=== PATIENT | male | born 1960 | race Caucasian/White ===

== ENCOUNTER 2017-12-14 18:33 | Inpatient (IN) | payer OTHER ==
[~2017-12-14] VITALS: Ht 182.9 cm; Wt 84.4 kg
[2017-12-14 18:35] VITALS: BP 215/122
[2017-12-14 18:49] LABS: ABSOLUTE BASOPHILS 0.1 thou/uL (0.0-0.2); ABSOLUTE EOSINOPHILS 0.1 thou/uL (0.0-0.7); ABSOLUTE LYMPHOCYTES 1.6 thou/uL (0.8-5.3); ABSOLUTE MONOCYTES 1.2 thou/uL (0.0-1.2); ABSOLUTE NEUTROPHILS 8.3 thou/uL (1.6-8.1); BASOPHILS 1.1 %; EOSINOPHILS 0.6 %; HEMATOCRIT 46.2 % (42.0-52.0); HEMOGLOBIN 15.4 gm/dL (14.0-18.0); LYMPHOCYTES 14.2 %; MCH 32.7 pg (26.0-34.0); MCHC 33.4 g/dL (28.0-37.0); MONOCYTES 10.3 %; MPV 9.3 fl. (7.2-11.1); NUCLEATED RBCS 0 /100WBC; PLATELET COUNT* 176 thou/uL (150-400); POLYS 73.8 %; RBC 4.71 mil/uL (4.50-6.00); RDW-CV 15.3 % (10.5-14.5); WBC 11.2 thou/uL (4.0-11.0)
[2017-12-14 18:56] LABS: CALCIUM 8.9 mg/dL (8.5-10.1); CREATININE 1.5 mg/dL (0.6-1.3); POTASSIUM 3.9 mmol/L (3.5-5.1)
[2017-12-14 19:01] LABS: APTT 27.8 Seconds (25.0-31.3); INR 1.1; PROTIME 10.9 Seconds (9.20-11.50)
[2017-12-14 19:06] LABS: ALBUMIN 3.9 g/dL (3.4-5.0); TOTAL BILIRUBIN 0.8 mg/dL (<0.1-1.0); TOTAL PROTEIN 7.8 g/dL (6.4-8.2); TROPONIN-I LEVEL 0.06 ng/mL (<0.06)
[2017-12-14 19:31] LABS: AMP/METHAMP Negative (Negative); BARBITURATES Negative (Negative); BENZODIAZEPINES Negative (Negative); COCAINE Negative (Negative); METHADONE Negative (Negative); OPIATES Negative (Negative); PCP Negative (Negative); THC Negative (Negative)
[2017-12-14 19:58] LABS: BE -2.5 mmol/L (-2 to +3); PCO2 32.7 mmHg (35.0-45.0); pH 7.425 (7.340-7.450)
[2017-12-14 20:00] LABS: PO2 < 23.5 mmHg (75.0-100.0)
[2017-12-14 21:03] VITALS: BP 151/86
[2017-12-14 21:33] VITALS: BP 162/95
[2017-12-15 00:38] VITALS: BP 145/93
[2017-12-15 04:00] VITALS: BP 137/89
[2017-12-15 08:00] VITALS: BP 165/97
--- NOTE | 2017-12-15 11:45 | EKG ---
[place] [address] ELECTROCARDIOGRAM REPORT Name: JUSTEN GARCIA Room: [place] [address] ADM IN [facility].#: [id number] Admission: 12/14/17 Attend Phys: Thanh Sue Discharge: Date of : 56 Report #: [id number] THIS REPORT FOR: //name// [facility] ED Test Date: 2017-12-14 Test Time: 18:37:10 Pat Name: JUSTEN WHITEW Department: Room: [facility] Gender: Assembler Trim: Thanh OTERO : 1960 Requested By: Diogo Casas Order Number: [id number] MD: Alfredo Bright Measurements Intervals [place] Rate: 136 P: 27 NC: 131 QRS: -22 QRSD: 74 T: 109 QT: 291 QTc: 438 Interpretive Statements Sinus tachycardia Left atrial enlargement RSR' in V1 or V2, probably normal variant LVH with secondary repolarization abnormality Baseline wander in lead(s) V1,V2,V3,V4,V5,V6 No previous ECG available for comparison Electronically Signed On 12-15-2017 11:44:43 FUSING MACHINE FEEDER by Alfredo Bright [email or web address] <ELECTRONICALLY SIGNED> By: Alfredo Bright MD, [facility] 12/15/17 1144 1837 1837 Alfredo Bright MD, [facility] /EPI
[2017-12-15 12:00] VITALS: BP 167/88
--- NOTE | 2017-12-15 13:49 | 2DMMODE ---
[place] [address] 2 D/M-MODE ECHOCARDIOGRAM Name: LAITH GARCIA Room: [place] [address] ADM IN .R.#: [id number] Admission: 12/14/17 Attend Phys: Laith Singh Discharge: Date of : 56 Date of Service: 12/15/17 1349 Report #: [id number] THIS REPORT FOR: //name// APPROVED REPORT Study performed: 12/15/2017 10:55:59 EXAM: Comprehensive 2D, Doppler, and color-flow Echocardiogram Patient Location: Bedside BSA: 2.07 HR: 80 bpm BP: 137/89 mmHg Other Information Study Quality: Good Indications Chest Pain Hypertension/HDD 2D Dimensions IVSd: 15.70 (7-11mm) LVOT Diam: 20.42 (18-24mm) LVDd: 58.25 mm PWd: 15.44 (7-11mm) Ascending Ao: 35.52 (22-36mm) LVDs: 47.28 (25-40mm) Aortic Root: 28.27 mm Volumes Left Atrial Volume (Systole) LA ESV Index: 41.60 mL/m2 Aortic Valve AoV Peak [place].: 1.74 m/s AO Peak Gr.: 12.16 mmHg LVOT Max P.14 mmHg AO Mean Gr.: 6.54 mmHg LVOT Mean P.89 mmHg LVOT Max V: 1.02 m/s AO V2 VTI: 29.58 cm LVOT Mean V: 0.63 m/s EJ (VTI): 2.35 cm2 LVOT V1 VTI: 21.27 cm AI [place]: 3.84 m/s2 AI PHT: 418.16 ms Mitral Valve E/A Ratio: 2.16 MV Decel. Time: 190.62 [place] [address] 2 D/M-MODE ECHOCARDIOGRAM Name: LAITH GARCIA Room: [address] IN [facility]#: [id number] Admission: 12/14/17 Attend Phys: Laith Singh Discharge: Date of : 56 Date of Service: 12/15/17 1349 Report #: [id number] MV E Max [place].: 1.22 m/s MV PHT: 55.28 ms MVA (PHT): 3.98 cm2 TDI E/Lateral E': 13.56 E/Medial E': 17.43 Medial E' [place].: 0.07 m/s Lateral E' [place].: 0.09 m/s Pulmonary Valve PV Peak [place].: 0.97 m/s PV Peak Gr.: 3.75 mmHg Tricuspid Valve RAP Estimate: 10.00 mmHg TR Peak Gr.: 47.74 mmHg RVSP: 57.74 mmHg PA Pressure: 57.74 mmHg Left Ventricle Left ventricle is dilated. There is global hypokinesis of the left ventricle. Mild to moderate concentric left ventricular hypertrophy. Left ventricular systolic function is moderately decreased. LVEF is 35-40%. Right Ventricle The right ventricle is normal size. The right ventricular systolic function is normal. Atria Left atrium is moderately dilated. The right atrium size is normal. Aortic Valve The aortic valve is normal in structure. Moderate aortic regurgitation. There is no aortic valvular stenosis. Mitral Valve Mitral valve leaflets are mildly thickened. Mild to moderate mitral regurgitation. No evidence of mitral valve stenosis. Tricuspid Valve The tricuspid valve is normal in structure. Mild tricuspid regurgitation. estimate pa pressure 40 mm Hg Pulmonic Valve The pulmonary valve is normal in structure. Trace [place] [address] 2 D/M-MODE ECHOCARDIOGRAM Name: LAITH GARCIA Room: [address] IN [facility]#: [id number] Admission: 12/14/17 Attend Phys: Laith Singh Discharge: Date of : 56 Date of Service: 12/15/17 1349 Report #: [id number] [place] The aortic root is normal in size. IVC is dilated. Pericardium There is no pericardial effusion. <Conclusion> Left atrium is moderately dilated. Moderate aortic regurgitation. Mild to moderate mitral regurgitation. Mild tricuspid regurgitation. estimate pa pressure 40 mm Hg Mild to moderate concentric left ventricular hypertrophy. LVEF is 35-40%. <ELECTRONICALLY SIGNED> By: Alfredo Bright MD, FACC 12/15/171348 48 48 Alfredo Bright MD, FACC /INF
[2017-12-15 16:00] VITALS: BP 184/107
[2017-12-15 20:00] VITALS: BP 166/86
[2017-12-16] VITALS: BP 151/70
[2017-12-16 04:00] VITALS: BP 160/78
[2017-12-16 05:34] LABS: HEMATOCRIT 41.9 % (42.0-52.0); MCHC 33.4 g/dL (28.0-37.0); MCV 98.7 fL (80.0-100.0); MPV 10.2 fl. (7.2-11.1); RBC 4.24 mil/uL (4.50-6.00); WBC 9.1 thou/uL (4.0-11.0)
[2017-12-16 05:50] LABS: CALCIUM 8.1 mg/dL (8.5-10.1); CREATININE 1.1 mg/dL (0.6-1.3); MAGNESIUM 1.8 mg/dL (1.8-2.4); POTASSIUM 3.9 mmol/L (3.5-5.1); TOTAL BILIRUBIN 0.8 mg/dL (<0.1-1.0); TOTAL PROTEIN 6.2 g/dL (6.4-8.2)
[2017-12-16 08:00] VITALS: BP 159/98
[2017-12-16 09:29] VITALS: BP 159/98
[2017-12-16] MEDS ORDERED: ASPIR 8181 MG PO (10:01)
[2017-12-16] MEDS ORDERED: LEVAQUIN 500 M500 M2 PO (10:01)
[2017-12-16] MEDS ORDERED: PRINIVIL5 MG PO (10:01)
--- NOTE | 2017-12-16 15:03 | CON ---
[address] [address] CONSULTATION Name: LAITH GARCIA Room: [address] IN .R.#: [id number] Admission: 12/14/17 Attend Phys: Thanh Sue Discharge: 12/16/17 Date of : 56 Report #: [id number] THIS REPORT FOR: //name// CC: MARY physician/PCP Laith Singh DATE OF SERVICE: 12/15/2017 HISTORY OF PRESENT ILLNESS: The patient is a 57-year-old single white male who I was asked to see in the hospital today after he was noted to have an abnormal troponin. The history is obtained from the patient. There are no old records available. The patient has a history of morbid obesity, previously weighing almost 300 pounds. However, he now weighs approximately 174 pounds. He stays fairly active. He has had no history of heart disease. He does smoke one half pack of cigarettes a day. He previously had high blood pressure, was on medications, but after he lost weight he no longer has high blood pressure. The patient states he was doing well recently, although he has had some heaviness in his chest. Yesterday afternoon, he felt short of breath and diaphoretic. He has been coughing. Because of shortness of breath he finally came to the Emergency Room. He was found to have evidence of pneumonia. His troponin is borderline elevated. I was asked to see him for further evaluation and treatment. He did note some heaviness in his chest and left arm numbness. The heaviness has been there for a week. He also notes occasional fluttering in his chest, but no syncope. He has had no leg pain or edema. Denied any fever. He has had a cough. PAST MEDICAL HISTORY: He has had an appendectomy. No longer has high blood pressure, diabetes, hyperlipidemia. MEDICATIONS: He is currently on no medications. ALLERGIES: He has no known drug allergies and unfortunately has no medical insurance. FAMILY HISTORY: His father had coronary artery bypass surgery. Sister had coronary stents. SOCIAL HISTORY: He is , lives here in [place]. He works cleaning swimming pools. He currently is a homosexual. He smokes 1-1/2 pack of cigarettes a day, has 2 drinks of alcohol a day. No history of alcohol abuse. REVIEW OF SYSTEMS: He has apparently been tested for HIV negative in the past. He has had no history of stroke. He does have a chronic cough. He was diagnosed with hepatitis C in the past, was never treated. No history of peptic ulcer disease or kidney stone. No cancer, [place] [address] CONSULTATION Name: LAITH GARCIA Room: [address] IN ..#: [id number] Admission: 12/14/17 Attend Phys: Thanh Sue Discharge: 12/16/17 Date of : 56 Report #: [id number] PHYSICAL EXAMINATION: GENERAL: Middle-aged male who appeared in no distress. VITAL SIGNS: On admission, he had a blood pressure of 200/100. He was afebrile, pulse was 100. HEENT: He is anicteric. Conjunctivae pink. Mucous membranes moist. NECK: Veins not distended. No carotid bruits. Neck supple. CHEST: Clear to auscultation. CARDIAC: Regular rate and rhythm without rub. ABDOMEN: Soft, nontender. EXTREMITIES: Had no edema. Posterior tibial pulse 3+ bilaterally. SKIN: Warm, dry. NEUROLOGIC: Nonfocal. DIAGNOSTIC DATA: His ECG on admission showed a sinus rhythm, left ventricular hypertrophy, repolarization changes. His workup so far in the Emergency Room, he had portable chest x-ray that showed normal heart size with patchy bilateral infiltrates consistent with pneumonitis. LABORATORY DATA: Sodium 138, BUN 28, creatinine 1.5, glucose 122, SGOT 48, SGPT 42. Troponin 0.09. BNP 3194. His white blood cell count 11.2, hemoglobin 15.4. IMPRESSION AND RECOMMENDATIONS: 1. Chest tightness. Atypical for angina. Suspect noncardiac. Would recommend an echocardiogram. 2. Hypertension. Previously on medications. At this time, I would recommend starting a beta marilee. 3. Pneumonia. 4. Tobacco abuse. 5. History of hepatitis C. 6. Chronic kidney disease. <ELECTRONICALLY SIGNED> By: Alfredo Bright MD, [facility] 12/16/17 1503 0837 [id number] Bright MD, FAC /nt
== END 2017-12-16 12:00 | disposition home or self-care (01) | DRG 682 ==
LOC: M.ERS 18:33 → M.2W 20:29 → M.TBA-ER 20:29 → M.2W 21:01
PROVIDERS: Emergency Medicine; Internal Medicine; Personal Emergency Response Attendant; ADMIT Internal Medicine
DX: N17.9 Acute kidney failure, unspecified (principal); J18.9 Pneumonia, unspecified organism; I42.9 Cardiomyopathy, unspecified; I16.0 Hypertensive urgency; F17.210 Nicotine dependence, cigarettes, uncomplicated; E66.01 Morbid (severe) obesity due to excess calories; Z68.25 Body mass index [BMI] 25.0-25.9, adult; N18.9 Chronic kidney disease, unspecified; I12.9 Hypertensive chronic kidney disease with stage 1 through stage 4 chronic kidney disease, or unspecified chronic kidney disease; R79.1 Abnormal coagulation profile; R74.8 Abnormal levels of other serum enzymes

== ENCOUNTER 2018-02-06 02:09 | Emergency (ER) | payer OTHER ==
[~2018-02-06] VITALS: Ht 182.9 cm; Wt 78.0 kg
[~2018-02-06 02:09] MED LIST: ASPIR 8181 MG PO; LEVAQUIN 500 M500 M2 PO; PRINIVIL5 MG PO
[2018-02-06 02:40] LABS: ABSOLUTE EOSINOPHILS 0.1 thou/uL (0.0-0.7); ABSOLUTE LYMPHOCYTES 1.7 thou/uL (0.8-5.3); ABSOLUTE MONOCYTES 1.1 thou/uL (0.0-1.2); BASOPHILS 0.5 %; EOSINOPHILS 1.1 %; HEMATOCRIT 45.1 % (42.0-52.0); HEMOGLOBIN 15.5 gm/dL (14.0-18.0); LYMPHOCYTES 21.9 %; MCH 32.8 pg (26.0-34.0); MCHC 34.5 g/dL (28.0-37.0); MCV 95.3 fL (80.0-100.0); MONOCYTES 13.6 %; MPV 8.8 fl. (7.2-11.1); NUCLEATED RBCS 0 /100WBC; PLATELET COUNT* 153 thou/uL (150-400); POLYS 62.9 %; RBC 4.73 mil/uL (4.50-6.00)
[2018-02-06 02:44] LABS: CALCIUM 8.7 mg/dL (8.5-10.1); CREATININE 1.1 mg/dL (0.6-1.3)
[2018-02-06 02:48] LABS: ALBUMIN 3.9 g/dL (3.4-5.0); POTASSIUM 2.9 mmol/L (3.5-5.1); TOTAL PROTEIN 7.5 g/dL (6.4-8.2)
[2018-02-06 07:45] VITALS: BP 114/74
== END 2018-02-06 07:45 | disposition home or self-care (01) ==
LOC: M.ERS 02:09
PROVIDERS: Personal Emergency Response Attendant
DX: S01.01XA Laceration without foreign body of scalp, initial encounter (principal); F10.129 Alcohol abuse with intoxication, unspecified; I10 Essential (primary) hypertension; Z90.49 Acquired absence of other specified parts of digestive tract; W19.XXXA Unspecified fall, initial encounter; Y93.89 Activity, other specified; Y92.89 Other specified places as the place of occurrence of the external cause; Y99.8 Other external cause status

== ENCOUNTER 2018-07-31 21:33 | Inpatient (IN) | payer OTHER ==
[~2018-07-31] VITALS: Ht 182.9 cm; Wt 82.1 kg
[2018-07-31 21:34] VITALS: BP 217/133
--- NOTE | 2018-07-31 22:03 | NUR ---
EMERGENCY CONTACT JEAN PRESTON [phone]
[2018-07-31 22:06] LABS: ABSOLUTE BASOPHILS 0.1 thou/uL (0.0-0.2); ABSOLUTE EOSINOPHILS 0.1 thou/uL (0.0-0.7); ABSOLUTE LYMPHOCYTES 1.6 thou/uL (0.8-5.3); ABSOLUTE MONOCYTES 1.1 thou/uL (0.0-1.2); ABSOLUTE NEUTROPHILS 8.2 thou/uL (1.6-8.1); BASOPHILS 0.7 %; EOSINOPHILS 0.9 %; HEMATOCRIT 43.9 % (42.0-52.0); HEMOGLOBIN 14.8 gm/dL (14.0-18.0); LYMPHOCYTES 14.3 %; MCH 32.1 pg (26.0-34.0); MCHC 33.6 g/dL (28.0-37.0); MCV 95.5 fL (80.0-100.0); MONOCYTES 9.7 %; MPV 9.5 fl. (7.2-11.1); NUCLEATED RBCS 0 /100WBC; PLATELET COUNT* 203 thou/uL (150-400); POLYS 74.4 %; RDW-CV 15.2 % (10.5-14.5)
[2018-07-31 22:11] LABS: CALCIUM 8.5 mg/dL (8.5-10.1); CREATININE 1.5 mg/dL (0.6-1.3); POTASSIUM 4.1 mmol/L (3.5-5.1)
[2018-07-31 22:17] LABS: APTT 27.5 Seconds (25.0-31.3); PROTIME 10.7 Seconds (9.20-11.50)
[2018-07-31 22:22] LABS: ALBUMIN 3.8 g/dL (3.4-5.0); MAGNESIUM 2.1 mg/dL (1.8-2.4); TOTAL BILIRUBIN 0.9 mg/dL (<0.1-1.0); TOTAL PROTEIN 7.6 g/dL (6.4-8.2); TROPONIN-I LEVEL 0.09 ng/mL (<0.06)
[2018-07-31 23:19] LABS: BE 1.1 mmol/L (-2 to +3); PCO2 38.3 mmHg (35.0-45.0); pH 7.435 (7.340-7.450)
[2018-07-31 23:23] LABS: PO2 132.6 mmHg (75.0-100.0)
--- NOTE | 2018-07-31 23:35 | NUR ---
SHEET METAL SUPERVISOR CALLED AND STATES SHE WAS READY FOR PATIENT. DR SALINAS STATES PATIENT MAY GO TO CT OFF BIPAP . SHEET METAL SUPERVISOR NOTIFIED AND IS RESPONDING TO TAKE PATIENT TO CT.
[2018-08-01] VITALS (7 sets, daily range): BP systolic 128–203; BP diastolic 51–119
--- NOTE | 2018-08-01 01:00 | NUR ---
RECEIVED REPORT FROM ER, ASSUMED CARE OF PT AT 0025. O2 ON AT 2L/NC, HOB ELEVATED. PT DOES GET SOA WITH ACTIVITY BUT AIR EXCHANGE CLEAR IN LUNGS. VOIDING IN LG AMTS PER URINAL. TELEMETRY APPLIED SHOWING ST. SEE ADMISSION HX AND ASSESSMENT. WILL CONT TO MONITOR AND ASSIST NEEDED.
[2018-08-01] MEDS ORDERED: LISINOPRIL40 MG PO (01:07)
[2018-08-01] MEDS ORDERED: LOSARTAN-HCTZ1 EAC1 PO (01:08)
[2018-08-01 05:31] LABS: CALCIUM 9.2 mg/dL (8.5-10.1); CREATININE 1.5 mg/dL (0.6-1.3); POTASSIUM 3.8 mmol/L (3.5-5.1)
--- NOTE | 2018-08-01 06:41 | NUR ---
AWAKE SINCE ADMISSION. DIURESING WELL BUT CAUSING SEVERE AJAY LEG CRAMPS. PT CRYING OUT WITH SUDDEN SPASMS AND STANDING ON FEET ATTEMPTING TO WORK MUSCLES. TYLENOL GIVEN WITH NO RELIEF. TELEMETRY SHOWING SR NOW. NO DIFFICULTY WITH BREATHING. HOURLY ROUNDING OBSERVED.
--- NOTE | 2018-08-01 10:55 | NUR ---
ASSUMED PT CARE AT 0730, FULL ASSESMENT DONE CHARTED. PT A/O X4, DENIES PAIN, ON 2L O2 SATS 98%, LUNGS CLEAR, PT STATES HE IS STILL HAVING A LITTLE PRESSURE MIDSTERNAL CHEST WHEN HE BREATHS IN. PT REPORTS CRAMPING OVERNIGHT, ALEX BARKSDALE'D. PTS BP STABLE, ALL OTHER VSS, SR ON THE MONITOR. UP AD KEANU, USES CALL LIGHT APPROPRIALTY. WILL CONTINUE WITH PLAN OF CARE
[2018-08-01 10:59] LABS: AMP/METHAMP Negative (Negative); BARBITURATES Negative (Negative); BENZODIAZEPINES Negative (Negative); COCAINE Negative (Negative); METHADONE Negative (Negative); OPIATES Negative (Negative); PCP Negative (Negative); THC Negative (Negative)
--- NOTE | 2018-08-01 18:25 | NUR ---
PT PROGRESSING TOWARD GOALS, PT REMOVED O2, BP DOWNWARD TREND. ALL OTHER VSS, REPORTS BEING TIRED, TRYING TO GET SOME REST THIS AFTERNOON. PT HOPING TO GO HOME TOMORROW. WILL CONTINUE TO MONITOR.
[2018-08-02 00:07] VITALS: BP 137/73
[2018-08-02 04:18] VITALS: BP 146/85
[2018-08-02 05:10] LABS: ABSOLUTE MONOCYTES 1.4 thou/uL (0.0-1.2); ABSOLUTE NEUTROPHILS 11.6 thou/uL (1.6-8.1); BASOPHILS 0.1 %; EOSINOPHILS 0.1 %; HEMATOCRIT 40.6 % (42.0-52.0); HEMOGLOBIN 13.6 gm/dL (14.0-18.0); MCHC 33.6 g/dL (28.0-37.0); MCV 95.2 fL (80.0-100.0); MONOCYTES 9.9 %; MPV 9.9 fl. (7.2-11.1); NUCLEATED RBCS 0 /100WBC; PLATELET COUNT* 173 thou/uL (150-400); POLYS 82.9 %; RBC 4.26 mil/uL (4.50-6.00); RDW-CV 15.1 % (10.5-14.5)
[2018-08-02 05:19] LABS: CALCIUM 8.6 mg/dL (8.5-10.1); CREATININE 1.6 mg/dL (0.6-1.3); POTASSIUM 3.4 mmol/L (3.5-5.1)
--- NOTE | 2018-08-02 06:36 | NUR ---
ASSESSMENT COMPLETED CHARTED. VSS. SEE MAR. SEE CHARTING. HOURLY ROUNDING FOR SAFETY.
--- NOTE | 2018-08-02 07:19 | CON ---
[address] [address] CONSULTATION Name: JUSTEN GARCIA Room: [address] IN M.R.#: [id number] Admission: 07/31/18 Attend Phys: Adrian Oseguera, Discharge: Date of : 56 Report #: [id number] THIS REPORT FOR: //name// CC: MARY physician/PCP Adrian Oseguera REQUESTING PHYSICIAN: Dr. Oseguera. REASON FOR CONSULTATION: Respiratory failure with COPD exacerbation. DISCUSSION: The patient is a 58-year-old man with a history of underlying tobacco abuse. He has not been formally diagnosed with any COPD or asthma in the past. He is not on any inhaled bronchodilators at home. He does smoke less than a pack of cigarettes per day. He presented to the Emergency Department yesterday evening with marked respiratory distress. He noted over the last week, he has not felt very good. He is getting more short of breath and had a lot of fatigue. He had fairly sudden onset of marked shortness of breath yesterday associated with some chest discomfort. He was gasping for breath. He was brought into the Emergency Department yesterday evening. He was noted to be in distress, was placed on BiPAP. X-ray did show some pulmonary edema. He was also noted to have an elevation in his troponins to a mild degree and elevated proBNP. He was able to come off the BiPAP after giving Lasix. He was also given neb treatments, started on steroids, now upon the telemetry unit. O2 has been weaned down to 1 liter. He is feeling much better. Shortness of breath is much improved. Main complaint actually now is having some intermittent cramping since admission. He was here last December at [facility]. He had an echocardiogram done at that time, which did show cardiomyopathy. Global hypokinesis of the LV along with LVH. His EF was only 35-40%. He also had moderate aortic regurgitation and ayhl-nn-akbfcjbw mitral regurgitation. His estimated PA pressure at that time was around 40 mmHg. He notes he has not had any followup with Cardiology in that regard. He does plasterer maintenance. He does note last week, he did have some exposure to chlorine gas. That did exacerbate some of his shortness of breath. Now he has been good and wearing a mask. PAST MEDICAL HISTORY: Besides the cardiomyopathy and valvular heart disease as noted above, also remarkable for prior appendectomy, hepatitis C, hypertension. SOCIAL HISTORY: He is , smoker. He has not had any cigarettes over the last week, but had been down to just under a pack. It has been a pack and a half in the past. He actually quit for almost 2 years in the past and resumed smoking when he went through a divorce. FAMILY HISTORY: [place] [address] CONSULTATION Name: JUSTEN GARCIA Room: [address] IN [facility]#: [id number] Admission: 07/31/18 Attend Phys: Adrian Oseguera, Discharge: Date of : 56 Report #: [id number] REVIEW OF SYSTEMS: ROS was done. Note positives above. Denies any difficulty swallowing. Had some mild nausea in the morning, but no vomiting. No diarrhea. He has had a lot of fatigue. Possible fevers at home, though he has not checked it. He notes at times, he may have some sweats. Has had some mild cough, generally not bringing up any sputum production. No reflux type symptoms. No syncopal episodes. PHYSICAL EXAMINATION: GENERAL APPEARANCE: A male who looks stated age. Alert and cooperative. He is in no acute distress. HEENT: Head is normocephalic and atraumatic. Sclerae nonicteric. Mucous membranes are moist. NECK: Negative for adenopathy. No JVD is noted. HEART: Regular. He has a grade 1/6 systolic murmur. No S3 is appreciated. LUNGS: Lung sounds are clear. Breath sounds are minimally diminished. Slight prolongation of expiratory phase. No crackles, wheezing heard. No CVA tenderness. EXTREMITIES: He has no clubbing. Lower extremities are negative for any edema. Does have a few small varicosities noted. SKIN: Warm and dry. NEUROLOGIC: He is alert and oriented x 3. He is currently on 1 liter of oxygen. LABORATORY AND X-RAY FINDINGS: Arterial blood gases done last night on the BiPAP, he had pH of 7.44, pCO2 of 38, pO2 133, bicarbonate 25 with a saturation of 97%. On his chemistry this morning, his sodium is 140, potassium 3.8, BUN 29, creatinine of 1.5. His ALT is 87, total bilirubin 0.9, AST 77. Troponin 0.09. ProBNP 5057. Last fall, TSH was normal. White blood cell count 11,000, hemoglobin 14.8, hematocrit 43.9, platelets 203,000. Chest x-ray was reviewed. He has cardiomegaly. Prominence of interstitial markings bilaterally. He did have a V/Q scan last December when he was here. It was thought to be low probability for PE. Also had a negative venous Dopplers in December. Renal ultrasound was also done due to his mild renal insufficiency. Had a prominent prostate, but no obstructive uropathy was noted. IMPRESSION: 1. Status post acute respiratory failure. Improved this morning down to 1 liter. Lungs currently are clear. I suspect he probably had pulmonary edema. He has known cardiomyopathy. I suspect ischemic, given hypokinesis noted previously. Also significant valvular heart disease, which is probably contributing. 2. Possible chronic obstructive pulmonary disease. Does have a long history of tobacco abuse. However, he has not been on any inhalers, neb treatments at home. If he does have chronic obstructive pulmonary disease, I suspect it is [place] [address] CONSULTATION Name: JUSTEN GARCIA Room: [address] IN [facility].#: [id number] Admission: 07/31/18 Attend Phys: Adrian Oseguera, Discharge: Date of : 56 Report #: [id number] 3. Renal insufficiency. Some of this appears to be chronic. 4. History of hypertension. 5. History of tobacco abuse. 6. Leg cramps, most likely related to his diuresis, despite having fairly normal potassium. RECOMMENDATIONS: 1. We will discontinue steroids. 2. Continue with neb treatments at this time. 3. Wean FiO2. 4. Diuresis. 5. Needs Cardiology followup. Discussed with the patient. <ELECTRONICALLY SIGNED> By: Jade William MD 08/02/18 0719 0915 [id number] William MD /nt
[2018-08-02 08:00] VITALS: BP 174/98
[2018-08-02 12:00] VITALS: BP 172/96
--- NOTE | 2018-08-02 12:49 | EKG ---
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[place] : 1960 Requested By: David Gil Order Number: [id number] MD: Manolo Main Measurements Intervals [place] Rate: 115 P: 58 PA: 141 QRS: -18 QRSD: 86 T: 110 QT: 351 QTc: 486 Interpretive Statements Sinus tachycardia LVH with secondary repolarization abnormality Borderline prolonged QT interval Compared to ECG 12/14/2017 18:37:10 Atrial abnormality no longer present Electronically Signed On 08-02-2018 12:48:51 CDT by Manolo Main [email or web address] <ELECTRONICALLY SIGNED> By: Manolo Main MD, [facility] 08/02/18 1248 2154 2154 Manolo Main MD, [facility] /EPI
[2018-08-02] MEDS ORDERED: AMOXIL 875 MG875 M1 PO (13:03)
[2018-08-02] MEDS ORDERED: VENTOLIN HFA 1818 GM INH (13:05)
[2018-08-02 13:06] VITALS: BP 172/96
--- NOTE | 2018-08-02 13:28 | NUR ---
ASSUMED PT CARE AT 0730, FULL ASSESMENT DONE CHARTED. PT A/O X4, DENIES PAIN, UP AD KEANU, DENIES PAIN, VSS, ST ON THE MONITOR. PT WANTING TO GO HOME, DISCHARGE ORDERS RECIEVED, CARDIOLOGY SPOKE TO PT, WILL SCHEDULE F/U APPT WITH BANKRUPTCY JUDGE AND ORDER FOR OUT PT ECHO FAXED TO SCHEDULING. PT EDUCATED ON MEDS, FOLLOW UP APPTS, SMOKING CESSATION, HEART FAILURE S/S GETTING PCP, GETTING SPECIAL MASK FOR WORK DUE TO WORKING WITH CHEMICALS. PT VERBALIZED UNDERSTANDING. PT DISCHARGED WITH BELONGINGS, WALKED TO FRONT INTRANCE WITH STAFF AND LEFT VIA CAR WITH FAMILY AT APPROX [phone]
--- NOTE | 2018-08-03 15:02 | CON ---
[address] [address] CONSULTATION Name: JUSTEN GARCIA Room: [address] IN .R.#: [id number] Admission: 07/31/18 Attend Phys: Adrian Oseguera, Discharge: 08/02/18 Date of : 56 Report #: [id number] THIS REPORT FOR: //name// CC: MARY physician/PCP Adrian Oseguera REFERRING PHYSICIAN: Adrian Oseguera MD. REASON FOR CONSULTATION: CHF. HISTORY OF PRESENT ILLNESS: The patient is a 58-year-old male, who presented with respiratory insufficiency and ultimately resolved with diuresis. He has a known cardiomyopathy, but has not ever followed up with a dance historian. Possibly, this could be due hypertension. He has underlying history of hypertension. He was diuresing overnight and he feels well and wants to go home. He has no complaints of palpitation, chest pain, shortness of breath. He ruled out for an CO. His presenting ECG did not show any acute ST segment changes. He was seen by Pulmonary and it was felt like most of his symptoms are probably related to his heart disease. PAST MEDICAL HISTORY: Significant for hypertension, alcoholic history. He has a known history of cardiomyopathy. He had an echo last year after he presented with similar findings with an EF of 35-40%, global hypokinesis, moderate aortic regurgitation, no aortic stenosis, iksj-kf-gvnmjuad mitral regurgitation, moderate pulmonary hypertension, PA pressure of 40 mmHg. SOCIAL HISTORY: He smokes and drinks. HOME MEDICATIONS: He had not been taken any of the medication prescribed his last hospitalization, but currently he is taking the following medications inpatient: Potassium, Lasix, enoxaparin, ondansetron, hydralazine p.r.n., and ceftriaxone. FAMILY HISTORY: Positive for heart murmurs and high blood pressure. REVIEW OF SYSTEMS: PULMONARY: No wheezing or cough. Positive shortness of breath. CARDIOVASCULAR: Positive dyspnea with exertion. No orthopnea, no PND. No edema, no weight gain. ENDOCRINE: He is not known to be a diabetic. RENAL: No history of kidney failure. SKIN: No rashes. GENERAL: No fevers or chills. NEUROLOGIC: No seizures, no stroke-like symptoms. No history of prior TIA, [place] [address] CONSULTATION Name: JUSTEN GARCIA Room: [address]#: [id number] Admission: 07/31/18 Attend Phys: Adrian Oseguera, Discharge: 08/02/18 Date of : 56 Report #: [id number] numbness, weakness or slurred speech. PHYSICAL EXAMINATION: VITAL SIGNS: Blood pressure is 174/98, pulse is in the 70s. GENERAL: This is a middle-aged male. He is alert, oriented, no apparent distress. HEENT: Eyes: EOMs are intact. No facial asymmetry. NECK: Supple. No jugular venous distention. CARDIOVASCULAR: Regular. There is a diastolic murmur. There is no S3. LUNGS: Clear to auscultation bilaterally. ABDOMEN: Soft, nontender, nondistended. EXTREMITIES: No peripheral edema. LABORATORY DATA: Electrocardiogram shows sinus rhythm, LVH repolarization. IMAGING: Chest x-ray shows cardiomegaly with interstitial pulmonary opacities. Chest x-ray, CTA was negative for PE, pleural effusions. IMPRESSION AND PLAN: 1. Acute congestive systolic heart failure. He has a known history of oimalnph-of-oxclhw left ventricular systolic dysfunction. He needs to be on medical therapy for his high blood pressure. 2. Aortic regurgitation. Previously, this was in the moderate range and may be worse. 3. Malignant hypertension. 4. Substance abuse. I would recommend an echocardiogram and treatment of his high blood pressure and surveillance of his aortic valve disease, which may have progressed. <ELECTRONICALLY SIGNED> By: Manolo Main MD, FACC 08/03/18 1502 1221 1241Manolo Main MD, FACC /nt
== END 2018-08-02 13:25 | disposition home or self-care (01) | DRG 917 ==
LOC: M.ERS 21:33 → M.TBA-ER 23:20 → M.2W 23:20
PROVIDERS: Family Medicine; Internal Medicine; ADMIT Family Medicine
DX: T59.4X1A Toxic effect of chlorine gas, accidental (unintentional), initial encounter (principal); I50.21 Acute systolic (congestive) heart failure; J96.01 Acute respiratory failure with hypoxia; J18.9 Pneumonia, unspecified organism; I13.0 Hypertensive heart and chronic kidney disease with heart failure and stage 1 through stage 4 chronic kidney disease, or unspecified chronic kidney disease; J44.1 Chronic obstructive pulmonary disease with (acute) exacerbation; J44.0 Chronic obstructive pulmonary disease with (acute) lower respiratory infection; I42.9 Cardiomyopathy, unspecified; N18.9 Chronic kidney disease, unspecified; B19.20 Unspecified viral hepatitis C without hepatic coma; I08.0 Rheumatic disorders of both mitral and aortic valves; I27.20 Pulmonary hypertension, unspecified; F17.210 Nicotine dependence, cigarettes, uncomplicated; Z90.49 Acquired absence of other specified parts of digestive tract; Z71.6 Tobacco abuse counseling; Y92.89 Other specified places as the place of occurrence of the external cause; Z79.899 Other long term (current) drug therapy; Z82.49 Family history of ischemic heart disease and other diseases of the circulatory system

== ENCOUNTER 2019-05-30 16:14 | Inpatient (IN) | payer OTHER ==
[~2019-05-30] VITALS: Ht 182.9 cm; Wt 81.6 kg
[~2019-05-30 16:14] MED LIST changes: +AMOXIL 875 MG875 M1 PO; +LISINOPRIL40 MG PO; +LOSARTAN-HCTZ1 EAC1 PO; +VENTOLIN HFA 1818 GM INH
[2019-05-30 16:18] VITALS: BP 175/111
[2019-05-30 16:35] LABS: ABSOLUTE NEUTROPHILS 5.2 thou/uL (1.6-8.1); BASOPHILS 0.5 %; EOSINOPHILS 0.4 %; HEMATOCRIT 40.6 % (42.0-52.0); HEMOGLOBIN 13.6 gm/dL (14.0-18.0); LYMPHOCYTES 13.5 %; MCHC 33.4 g/dL (28.0-37.0); MCV 89.8 fL (80.0-100.0); MONOCYTES 13.4 %; MPV 9.1 fl. (7.2-11.1); NUCLEATED RBCS 0 /100WBC; PLATELET COUNT* 139 thou/uL (150-400); POLYS 72.2 %; RBC 4.52 mil/uL (4.50-6.00); RDW-CV 16.4 % (10.5-14.5); WBC 7.2 thou/uL (4.0-11.0)
[2019-05-30 16:42] LABS: CALCIUM 8.4 mg/dL (8.5-10.1); CREATININE 1.7 mg/dL (0.6-1.3); POTASSIUM 4.6 mmol/L (3.5-5.1)
[2019-05-30 16:53] LABS: ALBUMIN 3.7 g/dL (3.4-5.0); MAGNESIUM 2.2 mg/dL (1.8-2.4); TOTAL BILIRUBIN 1.6 mg/dL (<0.1-1.0); TOTAL PROTEIN 7.2 g/dL (6.4-8.2)
[2019-05-30 17:45] VITALS: BP 112/70
[2019-05-30 18:22] VITALS: BP 176/60
[2019-05-30 20:10] VITALS: BP 161/108
[2019-05-31] VITALS: BP 153/108
[2019-05-31 04:00] VITALS: BP 141/99
[2019-05-31 06:22] LABS: ABSOLUTE BASOPHILS 0.1 thou/uL (0.0-0.2); ABSOLUTE EOSINOPHILS 0.1 thou/uL (0.0-0.7); ABSOLUTE LYMPHOCYTES 1.1 thou/uL (0.8-5.3); ABSOLUTE MONOCYTES 0.9 thou/uL (0.0-1.2); ABSOLUTE NEUTROPHILS 4.4 thou/uL (1.6-8.1); BASOPHILS 0.9 %; EOSINOPHILS 1.7 %; HEMATOCRIT 40.5 % (42.0-52.0); HEMOGLOBIN 13.4 gm/dL (14.0-18.0); LYMPHOCYTES 16.7 %; MCH 29.8 pg (26.0-34.0); MCHC 33.1 g/dL (28.0-37.0); MCV 90.2 fL (80.0-100.0); MONOCYTES 13.8 %; MPV 9.9 fl. (7.2-11.1); NUCLEATED RBCS 0 /100WBC; PLATELET COUNT* 133 thou/uL (150-400); POLYS 66.9 %; RBC 4.49 mil/uL (4.50-6.00); RDW-CV 16.4 % (10.5-14.5); WBC 6.5 thou/uL (4.0-11.0)
[2019-05-31 06:55] LABS: CALCIUM 8.3 mg/dL (8.5-10.1); CREATININE 1.7 mg/dL (0.6-1.3); POTASSIUM 4.3 mmol/L (3.5-5.1)
[2019-05-31 09:10] VITALS: BP 160/112
[2019-05-31 12:04] VITALS: BP 154/114
--- NOTE | 2019-05-31 13:15 | EKG ---
[place] [address] ELECTROCARDIOGRAM REPORT Name: JUSTEN GARCIA Room: [address] ADM IN [facility].#: [id number] Admission: 05/30/19 Attend Phys: Ellis Abreu, Discharge: Date of : 56 Date of Service: 05/30/19 1616 Report #: [id number] THIS REPORT FOR: //name// [facility] ED Test Date: 2019-05-30 Test Time: 16:16:51 Pat Name: JUSTEN GARCIA Department: Room: [facility] Gender: M Stretcher Operator: TS : 1960 Requested By: Winston Ferraro Order Number: [id number] MD: Alfredo Bright Measurements Intervals [place] Rate: 109 P: 57 OR: 143 QRS: -29 QRSD: 97 T: 117 QT: 348 QTc: 469 Interpretive Statements Sinus tachycardia Probable left atrial enlargement LVH with secondary repolarization abnormality Baseline wander in lead(s) II,III,aVF Compared to ECG 07/31/2018 21:54:31 No significant changes Electronically Signed On 05-31-2019 13:13:44 CDT by Alfredo Bright [email or web address] <ELECTRONICALLY SIGNED> By: Alfredo Bright MD, FACC 05/31/19 1313 1616 1616 Alfredo Bright MD, FAC /EPI
[2019-05-31 16:17] VITALS: BP 141/95
--- NOTE | 2019-05-31 16:45 | 2DMMODE ---
[place] [address] 2 D/M-MODE ECHOCARDIOGRAM Name: JUSTEN GARCIA Room: [address] IN [facility]#: [id number] Admission: 05/30/19 Attend Phys: Ellis Abreu, Discharge: Date of : 56 Date of Service: 05/31/19 1643 Report #: [id number] THIS REPORT FOR: cc: FAM - No family physician/PCP FAM - No family physician/PCP Alfredo Bright MD [facility] ~ APPROVED REPORT Study performed: 05/31/2019 14:24:16 EXAM: Comprehensive 2D, Doppler, and color-flow Echocardiogram Patient Location: In-Patient Room #: [facility] Status: routine BSA: 2.04 HR: 76 bpm BP: 141/99 mmHg Rhythm: NSR Other Information Study Quality: Good Indications Chest Pain 2D Dimensions IVSd: 14.45 (7-11mm) LVOT Diam: 19.39 (18-24mm) LVDd: 61.53 mm PWd: 11.23 (7-11mm) Ascending Ao: 30.41 (22-36mm) LVDs: 58.80 (25-40mm) Aortic Root: 28.99 mm Volumes Left Atrial Volume (Systole) LA ESV Index: 44.20 mL/m2 Aortic Valve AoV Peak Milton.: 1.41 m/s AO Peak Gr.: 7.96 mmHg LVOT Max P.01 mmHg AO Mean Gr.: 4.51 mmHg LVOT Mean P.31 mmHg LVOT Max V: 0.87 m/s AO V2 VTI: 21.28 cm LVOT Mean V: 0.51 m/s EJ (VTI): 2.02 cm2 LVOT V1 VTI: 14.52 cm AI Greenlee: 3.25 m/s2 [place] [address] 2 D/M-MODE ECHOCARDIOGRAM Name: JUSTEN GARCIA Room: [address] [place] [facility]#: [id number] Admission: 05/30/19 Attend Phys: Ellis Abreu, Discharge: Date of : 56 Date of Service: 05/31/19 1643 Report #: [id number] AI PHT: 432.26 ms Mitral Valve E/A Ratio: 1.58 MV Decel. Time: 136.75 ms MV E Max Milton.: 1.11 m/s MV PHT: 39.66 ms MVA (PHT): 5.55 cm2 TDI E/Lateral E': 15.86 E/Medial E': 18.50 Medial E' Milton.: 0.06 m/s Lateral E' Milton.: 0.07 m/s Pulmonary Valve PV Peak Milton.: 0.84 m/s PV Peak Gr.: 2.82 mmHg Tricuspid Valve RAP Estimate: 5.00 mmHg TR Peak Gr.: 42.92 mmHg RVSP: 47.00 mmHg PA Pressure: 47.00 mmHg Left Ventricle Left ventricle is moderately dilated. There is severe global hypokinesis of the left ventricle. Mild concentric left ventricular hypertrophy. Left ventricular systolic function is severely decreased. LVEF is 25-30%. Grade IV - fixed restrictive diastolic dysfunction. Right Ventricle The right ventricle is normal size. The right ventricular systolic function is normal. Atria Left atrium is moderately dilated. Right atrium is moderately dilated. Aortic Valve The Aortic valve is sclerotic. Mild aortic regurgitation. There is no aortic valvular stenosis. Mitral Valve The mitral valve is normal in structure. Moderate mitral regurgitation. No evidence of mitral valve stenosis[place] [address] 2 D/M-MODE ECHOCARDIOGRAM Name: JUSTEN GARCIA Room: [address]#: [id number] Admission: 05/30/19 Attend Phys: Ellis Abreu, Discharge: Date of : 56 Date of Service: 05/31/19 1643 Report #: [id number] The tricuspid valve is normal in structure. Moderate tricuspid regurgitation. estimated pa pressure 50 mm Hg Pulmonic Valve The pulmonary valve is normal in structure. Mild pulmonic regurgitation. Great Vessels The aortic root is normal in size. IVC is normal in size and collapses >50% with inspiration. Pericardium There is no pericardial effusion. <Conclusion> Mild concentric left ventricular hypertrophy. LVEF is 25-30%. Left atrium is moderately dilated. Mild aortic regurgitation. Moderate mitral regurgitation. Moderate tricuspid regurgitation. estimated pa pressure 50 mm Hg <ELECTRONICALLY SIGNED> By: Alfredo Bright MD, FACC 05/31/19 164 42 42 Alfredo Bright MD, FACC /INF
--- NOTE | 2019-05-31 17:26 | CON ---
[address] [address] CONSULTATION Name: JUSTEN GARCIA Room: [address] IN [facility]#: [id number] Admission: 05/30/19 Attend Phys: Ellis Abreu MD Discharge: Date of : 56 Report #: [id number] THIS REPORT FOR: //name// cc: MARY Heart family physician/PCP MARY Heart family physician/PCP ~ THIS REPORT FOR: //name// CC: Ellis HERNANDEZ physician/PCP DATE OF SERVICE: 05/30/2019 CARDIOLOGY CONSULTATION HISTORY OF PRESENT ILLNESS: The patient is a 59-year-old single white male who I was asked to see in the hospital after complaining of chest pain. The patient has had several hospitalizations here at [facility] in the past. He was actually admitted here in 12/2017. He complained of chest heaviness. He was noted to have an abnormal troponin. I actually saw him in consultation at that time. He did undergo an echocardiogram that showed moderate aortic regurgitation, left ventricular hypertrophy, ejection fraction of 35%. He was felt to have a cardiomyopathy. He was discharged. He was actually admitted here again in 07/2018 with shortness of breath. He was diuresed and sent home. The patient was doing well until yesterday, he was out walking the dog. He felt a discomfort in his chest, felt some left arm pain, felt short of breath and diaphoretic. His friend brought him to the Emergency Room. He was admitted. He denied any fever. He has had no cough, swelling of his feet. PAST MEDICAL HISTORY: Otherwise significant for appendectomy, hypertension, no diabetes. MEDICATIONS: Include lisinopril, aspirin. ALLERGIES: He has no known drug allergies. FAMILY HISTORY: His father had bypass surgery. SOCIAL HISTORY: He is , lives with a friend here in [place]. He works cleaning pools. Smokes one and half pack of cigarettes a day. Rarely drinks alcohol. REVIEW OF SYSTEMS: No history of stroke. He had hepatitis B and was treated in the past. He has had elevated creatinine. No psychiatric illness. No chronic cancer. No chronic skin condition. PHYSICAL EXAMINATION: [place] [address] CONSULTATION Name: RADHAJUSTEN Still Room: [address]#: [id number] Admission: 05/30/19 Attend Phys: Ellis Abreu MD Discharge: Date of : 56 Report #: [id number] GENERAL: Revealed a middle-aged male, appeared in no distress. VITAL SIGNS: Blood pressure 140/90, pulse 80. He is afebrile. HEENT: He was anicteric. Conjunctivae are pink. Mucous membranes moist. NECK: Veins not distended. No carotid bruits. CHEST: Clear to auscultation. CARDIOVASCULAR: Regular rate and rhythm. ABDOMEN: Soft. EXTREMITIES: Had no edema. Posterior tibial pulse on the right was 1+, left dorsalis pedis pulses 2+. SKIN: Warm and dry. RADIOLOGICAL DATA: His ECG shows a sinus rhythm, left ventricular hypertrophy, repolarization changes. LABORATORY DATA: Sodium 139, creatinine 1.7. His liver function studies were normal. Troponin is 0.16. His white blood cell count 6.5. IMPRESSION AND RECOMMENDATIONS: 1. Atypical chest pain. Because of his abnormal ECG, I would recommend a Lexiscan Cardiolite. 2. History of cardiomyopathy. Recommend echocardiogram. 3. Hypertension. The patient is on CHILO inhibitor. Recommend adding Coreg. 4. Tobacco abuse. 5. Shortness of breath. Recommend ruling out coronavirus. <ELECTRONICALLY SIGNED> By: Alfredo Bright MD, FACC 05/31/19 1726 1031 [id number] Bright MD, FACC /nt
[2019-05-31 20:00] VITALS: BP 155/103
[2019-06-01] VITALS (7 sets, daily range): BP systolic 124–160; BP diastolic 88–104
--- NOTE | 2019-06-01 16:18 | CARDNUC ---
[place] [address] CARDIAC NUCLEAR IMAGING REPORT Name: JUSTEN GARCIA Room: [address] IN [facility]#: [id number] Admission: 05/30/19 Attend Phys: Ellis Abreu, Discharge: Date of : 56 Date of Service: 06/01/19 1617 Report #: [id number] THIS REPORT FOR: cc: FAM - No family physician/PCP FAM - No family physician/PCP Boni Field MD [facility] ~ APPROVED REPORT Study performed: 06/01/2019 13:51:44 Exam: Nuclear Stress Test Indication: Chest pain, Dyspnea, elevated troponin. Patient Location: In-Patient Room #: 228 Stress Tech: Jackie Sanchez Stress Nurse: Janiya Fleming R.N. Ht: 6 ft 0 in Wt: 180 lbs BSA: 2.04 m2 BMI: 24.40 Medical History Medical History: Angina, CHF, CKI, HX Hep B, Pulmonary edema, Left arm pain with chest pain, Aortic regurgitation, LVH, Diaphoresis, Elevated Troponin, SOA, Fatigue, HTN, Smoking. Medications: Lasix, Sprionolactone, Carvedilol, Lisinopril, ASA 325 Mg, Hydralazine, NTG. Allergies: No known drug allergies Cardiac Risk Factors: Age, Current Smoker, FHX of CAD, HTN, SOB, Smoking, Tobacco History (Current/Recent), Aortic regurgitation, LVH. Previous Cardiac Procedures: None Pretest Chest Pain Characteristics: No chest pain Exercise History: Indeterminate Physical Disabilities: Weakness. Meds Held (24 hrs): Carvedilol, NTG. Stress Test Details Stress Test: Pharmacologic stress was paired with low level exercise. Reason for pharmacologic stress test: weaknesss.. HR Resting HR: 90 bpm Max Heart Rate (APMHR): 159 bpm Max HR Achieved: 135 bpm Target HR (85% APMHR): 135 [place] [address] CARDIAC NUCLEAR IMAGING REPORT Name: JUSTEN GARCIA Room: [address]#: [id number] Admission: 05/30/19 Attend Phys: Ellis Abreu, Discharge: Date of : 56 Date of Service: 06/01/19 1617 Report #: [id number] % of APMHR: 84 Recovery HR: 105 bpm HR response to stress: Accelerated HR response to stress BP Resting BP: 177/109 mmHg Max BP: 203/101 mmHg BP response to stress: Abnormal hypertensive response to stress. ECG Resting ECG: Sinus Rhythm Stress ECG: Sinus Tachycardia ST Change: None Arrhythmia: None Recovery ECG: Sinus Rhythm Recovery ST Change: None Recovery Arrhythmia: None Clinical Reason for Termination: Completed protocol Stress Symptoms: Dyspnea. Exercise duration: 4 min 00 sec Exercise capacity: 2.30 METs The patient tolerated walking Lexiscan protocol without significant cardiac symptoms. Nurse Comments A 59 year old male inpatient presented for a walking Lexiscan r/t increased dyspnea, chest pain with left arm pain, elevated troponins and HTN. Test well tolerated. Recovery unremarkable with PO caffeine. Patient was escorted via wheelchair by staff to Nuclear Medicine for imaging. Patient was stable with continued HTN and stated he felt good at that time. Stress ECG Conclusion The baseline 12-lead EKG shows sinus rhythm without significant ST segment abnormality. EKGs obtained during and post walking Lexiscan protocol showed sinus rhythm and sinus tachycardia without significant ST segment changes when compared to baseline. There were no stress-induced arrhythmias. NM EXAM: Myocardial Perfusion REST/STRESS Imaging Protocol: Rest Tc-99m/Stress Tc-99m 1 [place] [address] CARDIAC NUCLEAR IMAGING REPORT Name: JUSTEN GARCIA Room: [address]#: [id number] Admission: 05/30/19 Attend Phys: Ellis Abreu, Discharge: Date of : 56 Date of Service: 06/01/19 1617 Report #: [id number] Rest SPECT myocardial perfusion imaging was performed in supine position 30 minutes following the intravenous injection of 10.9 mCi of Tc-99m Sestamibi. Time of rest injection: 12:00 The images were gated to evaluate regional wall motion and calculate left ventricular ejection fraction. Administration Route: IV Administration Site: Left AC Pharmacologic Stress Pharmacologic stress test was performed by injecting Regadenoson 0.4 mg IV push followed by the intravenous injection of 32.8 mCi of Tc-99m Sestamibi. Time of stress injection: 13:45 Administration Route: IV Administration Site: Left AC Heart Rate at time of stress injection: 135 bpm. Gated Stress SPECT was performed 40 minutes after stress injection. The images were gated to evaluate regional wall motion and calculate left ventricular ejection fraction. Prone imaging was performed. Study Quality Study: Good Artifact: Mild Diaphragmatic artifact Study Data At rest, the left ventricular ejection fraction was 9%.. Post stress, the left ventricular ejection was 18%.. TID = 0.99. Perfusion Perfusion images obtained in the supine position at rest and post stress show a fixed defect of the basal to mid inferior wall that resolves with post stress prone imaging suggesting diaphragmatic attenuation artifact. There were no other significant fixed or reversible defects identified. Wall Motion The left ventricle is dilated. There is severe global hypokinesis with akinesis of the inferior and inferoseptal james. Nuclear Conclusion ECG Findings: negative for ischemia Clinical Findings: [place] [address] CARDIAC NUCLEAR IMAGING REPORT Name: JUSTEN GARCIA Room: [address] [place] [facility]#: [id number] Admission: 05/30/19 Attend Phys: Ellis Abreu, Discharge: Date of : 56 Date of Service: 06/01/19 1617 Report #: [id number] Nuclear Findings: negative for ischemia Exercise Capacity: not assessed Left Ventricular Function: abnormal Risk Study: high Perfusion images show no defect to suggest ischemia. The fixed defect of the inferior wall resolves with post stress prone imaging suggesting diaphragmatic attenuation artifact. LV systolic function is severely decreased and the left ventricle dilated. The study is high risk based on severe left ventricular systolic dysfunction. <Conclusion> The baseline 12-lead EKG shows sinus rhythm without significant ST segment abnormality. EKGs obtained during and post walking Lexiscan protocol showed sinus rhythm and sinus tachycardia without significant ST segment changes when compared to baseline. There were no stress-induced arrhythmias. <ELECTRONICALLY SIGNED> By: Boni Field MD, FACC 06/01/19 1617 1617 1617 Boni Field MD, FACC /INF
[2019-06-02 04:38] VITALS: BP 142/98
[2019-06-02 06:20] LABS: ANION GAP 8 mmol/L (7-16); BUN 31 mg/dL (7-18); CALCIUM 8.2 mg/dL (8.5-10.1); CHLORIDE 103 mmol/L (98-107); CHOLESTEROL 126 mg/dL (<200); CO2 28 mmol/L (21-32); CREATININE 1.7 mg/dL (0.6-1.3); GLUCOSE 79 mg/dL (70-99); HDL CHOLESTEROL 55 mg/dL (>40); LDL CHOLESTEROL 61 mg/dL (<100); POTASSIUM 4.1 mmol/L (3.5-5.1); SERUM ASSESSMENT Clear; SODIUM 139 mmol/L (136-145); TC:HDL 2.3 Ratio (Not establshd); TRIGLYCERIDE 52 mg/dL (<150); VLDL 10 mg/dL (<40)
[2019-06-02 08:00] VITALS: BP 154/104
[2019-06-02 12:00] VITALS: BP 139/97
[2019-06-02 16:00] VITALS: BP 137/86
[2019-06-02] MEDS ORDERED: SPIRONOLACTONE25 M1 PO (16:26)
[2019-06-02] MEDS ORDERED: TYLENOL325 M1 PO (16:31)
[2019-06-02] MEDS ORDERED: LASIX 40 MG TAB40 MG PO (16:33)
[2019-06-02] MEDS ORDERED: CARVEDILOL12.5 MG PO (18:26)
--- NOTE | 2019-06-03 13:22 | CARD ---
[address] [address] CARDIAC CATH REPORT Name: JUSTEN GARCIA Room: [address]#: [id number] Admission: 05/30/19 Attend Phys: Ellis Abreu MD Discharge: 06/02/19 Date of : 56 Report #: [id number] THIS REPORT FOR: //name// cc: MARY Hooker No family physician/PCP MARY - No family physician/PCP ~ APPROVED REPORT Study performed: 06/02/2019 13:40:55 Patient Details Patient Status: In-Patient Room #: The patient is a 59 year-old male Event Personnel Alfredo Bright, Music Agent, Saritha Benson, RN Crane Hoist Or Lift Operator, Erick Avalos, FRONT DESK MANAGER Monitor, Carisa Dorado, RTR Scrub Procedures Performed diagnostic cath with aortic root injection Indication Abnormal ECG, Dyspnea, CardiomyopathyPositive stress test, Valvular heart disease, Chest pain Risk Factors Arterial Hypertension, Tobacco History () Previous Procedures/Diagnoses Previous CHF Admission/Lab Medications/Medications given during procedure Heparin Unfract., Heparin 4000 units IV bolus Procedure Narrative The patient was brought electively to the Cardiac Catheterization Laboratory and was prepped and draped in a sterile manner. The right wrist was infiltrated with 1% Lidocaine subcutaneous anesthesia. A 6F sheath was inserted into the right radial artery. Coronary angiography was performed using coronary diagnostic catheters. The right coronary system was accessed and visualized with a 6F JR4 catheter. The left coronary system was accessed and visualized with a 6F JL4 catheter. The left ventricle was accessed and visualized with a 6F JR4 and 6F Pigtail catheter. Left ventricular/Aortic Valve gradient assessed via catheter pullback. [place] [address] CARDIAC CATH REPORT Name: JUSTEN GARCIA Room: [address]#: [id number] Admission: 05/30/19 Attend Phys: Ellis Abreu MD Discharge: 06/02/19 Date of : 56 Report #: [id number] performed in [place] projection. An aortogram of the ascending aorta was performed. Closure device was deployed with a Fr 24 cm Radial Vasc band. The patient tolerated the procedure well and there were no complications associated with the procedure. There was no hematoma. Intraoperative Conscious Sedation Sedation start time: 14:53 Case end Time: 15:11 Versed 2.0 mg Fluoro Time: 4.6 minutes Dose: DAP 72664 cGycm2 1108 mGy Contrast Type and Amount: 150 Coronary Angiography The patient's coronary anatomy is right dominant. [place] Artery Percent Stenosis Left Main: 0 % Prox LAD: 0 % Mid/Distal LAD: 0 % Circumflex: 0 % RCA: 0 % Ramus: % Left Ventriculography The left ventricular ejection fraction is estimated to be 15-20%. There is no mitral insufficiency. 1+ aortic insufficiency noted of root injection. Severe global hypokinesis noted of the LV. Hemodynamics The left ventricular end diastolic pressure is 18 mmHg. There was no gradient across the aortic valve upon pullback. Pullback from the left ventricle to the aorta revealed no gradient across the aortic valve. Conclusion 1. Nonischemic cardiomyopathy with normal coronaries 2. LVEF 15-20% 3. mild aortic insufficiency Recommendations Cardiac Rehabilitation Referral Aggressive Medical Therapy <ELECTRONICALLY SIGNED> By: Alfredo Bright MD, FACC 06/03/19 1321 1321 1321Djessica Bright MD, FACC /INF
== END 2019-06-02 19:10 | disposition home or self-care (01) | DRG 286 ==
LOC: M.ERS 16:14 → M.TBA-ER 17:03 → M.ORTHSURG 17:03 → M.ERS 17:46 → M.ORTHSURG 18:21 → M.2W 06-01 10:06
PROVIDERS: Emergency Medicine Emergency Medical Services; Internal Medicine Cardiovascular Disease; ADMIT Internal Medicine
PROC: B4101ZZ Fluoroscopy of Abdominal Aorta using Low Osmolar Contrast (ICD-10-PCS; principal; 2019-06-02)
PROC: B2151ZZ Fluoroscopy of Left Heart using Low Osmolar Contrast (ICD-10-PCS; principal; 2019-06-02)
PROC: B2111ZZ Fluoroscopy of Multiple Coronary Arteries using Low Osmolar Contrast (ICD-10-PCS; principal; 2019-06-02)
PROC: 4A023N7 Measurement of Cardiac Sampling and Pressure, Left Heart, Percutaneous Approach (ICD-10-PCS; principal; 2019-06-02)
DX: I13.0 Hypertensive heart and chronic kidney disease with heart failure and stage 1 through stage 4 chronic kidney disease, or unspecified chronic kidney disease (principal); J81.0 Acute pulmonary edema; I50.23 Acute on chronic systolic (congestive) heart failure; I42.8 Other cardiomyopathies; J44.9 Chronic obstructive pulmonary disease, unspecified; F10.20 Alcohol dependence, uncomplicated; Z20.828 Contact with and (suspected) exposure to other viral communicable diseases; N18.9 Chronic kidney disease, unspecified; Z86.19 Personal history of other infectious and parasitic diseases; Z90.49 Acquired absence of other specified parts of digestive tract; I35.1 Nonrheumatic aortic (valve) insufficiency; Z82.49 Family history of ischemic heart disease and other diseases of the circulatory system